=== PATIENT | female | born 1985 | race Caucasian/White ===

== ENCOUNTER 2020-07-28 17:53 | Emergency (ER) | payer OTHER ==
[2020-07-28 18:43] LABS: Absolute Lymphocytes (CBC) 1.8 K/uL (0.7-4.9); Basophils % 0.1 % (0-1.3); Hematocrit 39.3 % (36.0-45.0); Lymphocytes % 31.6 % (15.3-44.8); MPV 8.6 fL (7.6-11.3); RBC Red Blood Cell Count 4.36 M/uL (3.86-4.86)
[2020-07-28 19:07] LABS: Potassium 4.2 mmol/L (3.5-5.1)
--- NOTE | 2020-07-28 19:31 | ER ---
Nurse's Notes [facility] Name: Honey Michaud Age: 35 yrs Sex: Female : 1985 Arrival Date: 07/28/2020 Time: 17:56 Bed 17 Private MD: Diagnosis: Less than 8 weeks gestation of ;Threatened Presentation: 07/28 18:07 Chief complaint: Patient states: 6 weeks, 2 days . Had transvaginal US at the [facility] doctor's office yesterday. 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 Reports cramping. Coronavirus screen: Client denies travel out of the [place] in the last 14 days. At this time, the client does not indicate any symptoms associated with coronavirus-19. Ebola Screen: Patient negative for fever greater than or equal to 101.5 degrees Fahrenheit, and additional compatible Ebola Virus Disease symptoms Patient denies exposure to infectious person. Patient denies travel to an Ebola-affected area in the 21 days before illness onset. No symptoms or risks identified at this time. Initial Sepsis Screen: Does the patient meet any 2 criteria? No. Patient's initial sepsis screen is negative. Does the patient have a suspected source of infection? No. Patient's initial sepsis screen is negative. Risk Assessment: Do you want to hurt yourself or someone else? Patient reports no desire to harm self or others. Onset of symptoms was July 28, 2020. 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 - Social history:: Smoking status: Patient denies any tobacco usage or history of. Screenin:29 Abuse screen: Denies threats or abuse. Nutritional screening: No deficits noted. jd3 Tuberculosis screening: No symptoms or risk factors identified. Fall Risk Ambulatory Aid- None/Bed Rest/Nurse Assist (0 pts). Gait- Normal/Bed Rest/Wheelchair (0 pts) Mental Status- Oriented to own ability (0 pts). Total Moore Fall Scale indicates No Risk (0-24 pts). Assessment: 18:27 General: Appears in no apparent distress. uncomfortable, Behavior is calm, cooperative, jd3 appropriate for age. Pain: Complains of pain in suprapubic area Quality of pain is described as crampy. Neuro: Level of Consciousness is awake, alert, obeys commands, Oriented to person, place, time, situation. Cardiovascular: Denies chest pain, Capillary refill < 3 seconds Patient's skin is warm and dry. Respiratory: Airway is patent Respiratory effort is even, unlabored, Respiratory pattern is regular, symmetrical, Denies cough, shortness of breath. GI: No signs and/or symptoms were reported involving the gastrointestinal system. : Reports vaginal bleeding. EENT: No signs and/or symptoms were reported regarding the EENT system. Derm: Skin is intact, Skin is dry, Skin is normal, Skin temperature is warm. Musculoskeletal: Circulation, motion, and sensation intact. Range of motion: intact in all extremities. 19:26 Reassessment: Patient appears in no apparent distress at this time. No changes from jd3 previously documented assessment. Patient and/or family updated on plan of care and expected duration. Pain level reassessed. Patient is alert, oriented x 3, equal unlabored respirations, skin warm/dry/pink. Vital Signs: 18:07 BP 120 / 84; Pulse 60; Resp 16 S; Temp 97.1(TE); Pulse Ox 100% on R/A; Weight 74.84 kg ca1 (M); Height 5 ft. 5 in. (165.10 cm); Pain 3/10; 19:26 BP 122 / 86; Pulse 62; Resp 17 S; Pulse Ox 100% on R/A; jd3 18:07 Body Mass Index 27.46 (74.84 kg, 165.10 cm) ca1 ED Course: 17:56 Patient arrived in ED. rg4 18:08 Gerri Florence FNP-C [facility]. kb 18:08 Ramiro Liz MD is Attending Physician. kb 18:09 Triage completed. ca1 18:11 Arm band placed on right wrist. ca1 18:18 Ottoniel Choudhary, RN is Primary Nurse. jd3 18:25 Inserted saline lock: 20 gauge in right antecubital area, using aseptic technique. bp Blood collected. 18:29 Patient has correct armband on for positive identification. Placed in gown. Bed in low jd3 position. Call light in reach. Side rails up X 1. Adult w/ patient. Pulse ox on. NIBP on. 19:01 Transvaginal Ob In Process Unspecified. EDMS 19:42 No provider procedures requiring assistance completed. IV discontinued, intact, ll2 bleeding controlled, No redness/swelling at site. Pressure dressing applied. Administered Medications: No medications were administered Outcome: 19:30 Discharge ordered by . kb 19:42 Discharged to home ambulatory. ll2 19:42 Condition: stable 19:42 Discharge instructions given to patient, Instructed on discharge instructions, follow up and referral plans. Demonstrated understanding of instructions, follow-up care. 19:44 Patient left the ED. ll2 Signatures: Dispatcher [employer] EDIL Gerri Florence, DESIGNER/WRITER-C DESIGNER/WRITER-Cally Downing rg4 Ottoniel Choudhary, RN RN jGetachew Peralta, VERONIKA RN bp Lucia Hinson RN RN ca1 Meagan Willett RN RN ll2
--- NOTE | 2020-07-28 19:31 | EDPHYS ---
Physician Documentation [facility] Name: Honey Michaud Age: 35 yrs Sex: Female : 1985 Arrival Date: 07/28/2020 Time: 17:56 Bed 17 Private MD: ED Physician Ramiro Liz HPI: 07/28 19:34 This 35 yrs old Female presents to ER via Ambulatory with complaints of kb Vaginal Bleeding, + Preg <12wks. 19:34 The patient presents to the emergency department with vaginal bleeding, that is kb moderate, with clots, intermittent. The estimated gestational age is 6 weeks. course: care: private OB physician, Dr. Armstrong - [facility]. Previous pregnancies: in previous pregnancies patient has had. Associated signs and symptoms: Pertinent positives: vaginal bleeding, cramps. The patient has not experienced similar symptoms in the past. The patient has not recently seen a physician. Pt reports she had a transvaginal US in OB office yesterday. Today started having intermittent moderate bleeding with clots. 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 - Social history:: Smoking status: Patient denies any tobacco usage or history of. ROS: 19:34 Constitutional: Negative for fever, chills, and weight loss, Cardiovascular: Negative kb for chest pain, palpitations, and edema, Respiratory: Negative for shortness of breath, cough, wheezing, and pleuritic chest pain, Abdomen/GI: Negative for abdominal pain, nausea, vomiting, diarrhea, and constipation, Back: Negative for injury and pain, MS/Extremity: Negative for injury and deformity, Skin: Negative for injury, rash, and discoloration, Neuro: Negative for headache, weakness, numbness, tingling, and seizure. 19:34 : Positive for vaginal bleeding. Exam: 19:34 Constitutional: This is a well developed, well nourished patient who is awake, alert, kb and in no acute distress. Head/Face: Normocephalic, atraumatic. Chest/axilla: Normal chest wall appearance and motion. Nontender with no deformity. No lesions are appreciated. Cardiovascular: Regular rate and rhythm with a normal S1 and S2. No gallops, murmurs, or rubs. Normal PMI, no JVD. No pulse deficits. Respiratory: Lungs have equal breath sounds bilaterally, clear to auscultation and percussion. No rales, rhonchi or wheezes noted. No increased work of breathing, no retractions or nasal flaring. Abdomen/GI: Soft, non-tender, with normal bowel sounds. No distension or tympany. No guarding or rebound. No evidence of tenderness throughout. Back: No spinal tenderness. No costovertebral tenderness. Full range of motion. Skin: Warm, dry with normal turgor. Normal color with no rashes, no lesions, and no evidence of cellulitis. MS/ Extremity: Pulses equal, no cyanosis. Neurovascular intact. Full, normal range of motion. Neuro: Awake and alert, GCS 15, oriented to person, place, time, and situation. Cranial nerves II-XII grossly intact. Motor strength 5/5 in all extremities. Sensory grossly intact. Cerebellar exam normal. Normal gait. Vital Signs: 18:07 BP 120 / 84; Pulse 60; Resp 16 S; Temp 97.1(TE); Pulse Ox 100% on R/A; Weight 74.84 kg ca1 (M); Height 5 ft. 5 in. (165.10 cm); Pain 3/10; 19:26 BP 122 / 86; Pulse 62; Resp 17 S; Pulse Ox 100% on R/A; jd3 18:07 Body Mass Index 27.46 (74.84 kg, 165.10 cm) ca1 MDM: 18:12 Patient medically screened. kb 19:33 Data reviewed: vital signs, nurses notes. Data interpreted: Pulse oximetry: on room air kb is 100 %. Interpretation: normal. Counseling: I had a detailed discussion with the patient and/or guardian regarding: the historical points, exam findings, and any diagnostic results supporting the discharge/admit diagnosis, lab results, radiology results, the need for outpatient follow up, an OB/Gyne specialist, to return to the emergency department if symptoms worsen or persist or if there are any questions or concerns that arise at home. 07/28 18:12 Order name: Quantitative Hcg; Complete Time: 19:08 kb 07/28 18:12 Order name: Abo/rh Typing; Complete Time: 19:29 kb 07/28 18:12 Order name: Basic Metabolic Panel; Complete Time: 19:08 kb 07/28 18:12 Order name: CBC with Diff; Complete Time: 18:59 kb 07/28 19:40 Order name: Urine --Ancillary (enter results) tt3 07/28 19:40 Order name: Urine Dipstick--Ancillary (enter results) tt3 07/28 18:12 Order name: Urine Test (obtain specimen); Complete Time: 19:36 kb 07/28 18:12 Order name: IV Saline Lock; Complete Time: 18:24 kb 07/28 18:12 Order name: Labs collected and sent; Complete Time: 18:24 kb 07/28 18:12 Order name: NPO; Complete Time: 18:24 kb 07/28 18:12 Order name: Urine Dipstick-Ancillary (obtain specimen); Complete Time: 19:36 kb 07/28 18:13 Order name: US Transvaginal Ob; Complete Time: 19:41 kb Administered Medications: No medications were administered Disposition: 07/28/20 19:30 Discharged to Home. Impression: Less than 8 weeks gestation of , Threatened . - Condition is Stable. - Discharge Instructions: Vaginal Bleeding During , First Trimester, First Trimester of , [id number], Subchorionic Hematoma, Threatened Miscarriage, [id number], Pelvic Rest. - Medication Reconciliation Form, Thank You Letter, Antibiotic Education, Prescription Opioid Use form. - Follow up: Emergency Department; When: As needed; Reason: Worsening of condition. Follow up: Private Physician; When: 2 - 3 days; Reason: Recheck today's complaints, Continuance of care, Re-evaluation by your physician. Addendum: 07/30/2020 07:35 Co-signature as Attending Physician, Ramiro Liz MD I agree with the assessment and t w4 plan of care. Signatures: Dispatcher [employer] Gerri Mike, GIFT CONSULTANT-C GIFT CONSULTANT-Ckb Ramiro Liz MD MD tw4 Lucia Hinson RN RN ca1 Meagan Willett RN RN ll2 Corrections: (The following items were deleted from the chart) 07/28 19:44 19:30 07/28/2020 19:30 Discharged to Home. Impression: Less than 8 weeks gestation of ll2 ; Threatened . Condition is Stable. Forms are Medication Reconciliation Form, Thank You Letter, Antibiotic Education, Prescription Opioid Use. Follow up: Emergency Department; When: As needed; Reason: Worsening of condition. Follow up: Private Physician; When: 2 - 3 days; Reason: Recheck today's complaints, Continuance of care, Re-evaluation by your physician. kb
--- NOTE | 2020-07-28 19:39 | RAD REPORT ---
EXAM DESCRIPTION: US - Transvaginal OB - 07/28/2020 7:01 pm CLINICAL HISTORY: Abd cramping, ;Vaginal bleeding COMPARISON: No comparisons FINDINGS: Normal shaped intrauterine gestational sac identified. Yolk sac and pole identified. Bertrand-rump length corresponds to a 6 week 3 day age. Heart rate is 110 BPM. A 6 millimeter subchorio kavya hemorrhage is present not regarded as significant. A 2.7 centimeter thin-walled anechoic left ovarian cyst is present. Both ovaries are identified and s how normal blood flow in the stroma. No suspicious adnexal mass. No abnormal fluid in the cul de sac. IMPRESSION: Single 6 week 3 day IUP with heart rate 110 BPM. No other significant findings.
[2020-07-28 20:03] VITALS: TEMP 97.1; O2SAT 100
[2020-07-28 20:04] VITALS: BP 122/86
[2020-07-28 20:35] LABS: Urine Blood 3+ (NEG); Urine Glucose NEGATIVE (NEG); Urine Protein NEGATIVE (NEG); Urine Specific Gravity 1.015 (1.005-1.030)
== END 2020-07-28 19:44 | disposition home or self-care (01) ==
LOC: ER 17:53
DX: O20.0 Threatened abortion (principal); O99.341 Other mental disorders complicating pregnancy, first trimester; F41.8 Other specified anxiety disorders; Z3A.01 Less than 8 weeks gestation of pregnancy
CPT/HCPCS: 36415; 76817; 80048; 81003; 81025; 84702; 85025; 86900; 86901; 99284